=== PATIENT | male | born 1985 | race American Indian/Alaskan Native ===

== ENCOUNTER 2022-02-01 20:42 | Emergency (ER) | payer SELFPAY ==
[2022-02-01 22:40] VITALS: BP 128/85
--- NOTE | 2022-02-01 23:40 | XRay Report ---
LEFT HAND 3 VIEW(S) INDICATION / CLINICAL INFORMATION: 5TH FINGER OPEN FRACTURE COMPARISON: None available. FINDINGS: BONES / JOINT(S): Dorsolateral dislocation of the small finger PIP demonstrated small fracture along the volar plate present. SOFT TISSUES: No significant abnormality. ADDITIONAL FINDINGS: None. IMPRESSION: 1. Dorsolateral dislocation of the left small finger PIP with fracture along the volar plate of the m iddle phalanx. Signer Name: Camilo Garrett II, MD Signed: 02/01/2022 11:36 PM Workstation Name: [id number]
[2022-02-02] MEDS ORDERED: ceFAZolin 1 GM VIAL IM ONE (02:55)
[2022-02-02] MEDS ORDERED: oxyCODONE /ACETAMINOPHEN 5-325MG TAB PO ONE (02:55)
--- NOTE | 2022-02-02 03:31 | XRay Report ---
XR finger(s) 2+V LT INDICATION / CLINICAL INFORMATION: post reduction film COMPARISON: None available. FINDINGS: The left small finger PIP remains dorsally dislocated. Deformity along the inferior corner remains pr esent. IMPRESSION: 1. Dorsal dislocation left small finger PIP. Signer Name: Camilo Garrett II, MD Signed: 02/02/2022 3:27 AM Workstation Name: [id number]
--- NOTE | 2022-02-02 04:54 | XRay Report ---
XR finger(s) 1V LT INDICATION / CLINICAL INFORMATION: post reductigon second COMPARISON: Left hand x-ray 02/02/2022 FINDINGS: Single lateral view left small finger demonstrates reduction of PIP with bony deformity involving the volar corner of the middle phalanx. Additional nondisplaced fracture dorsal corner is not excluded. IMPRESSION: 1. Successful reduction of PIP with fracture deformity involving the volar corner middle phalanx. Signer Name: Camilo Garrett II, MD Signed: 02/02/2022 4:49 AM Workstation Name: [id number]
--- NOTE | 2022-02-02 05:56 | Emergency Department Report ---
ED Upper Extremity Inj HPI - General Chief Complaint: Extremity Injury, Upper Stated Complaint: POSS BROKEN LEFT PINKY FINGER Time Seen by Provider: 02/02/22 02:30 Source: patient Mode of arrival: Ambulatory Limitations: No Limitations - History of Present Illness Initial Comments: 36-year-old male presents emerged department complaining of pain to the left finger which was sustained after he was trying to catch a football resulting in him jamming his finger and having a open fracture laceration. Complaint: Injury to:: left, finger -: Sudden Other Extremity Injury: Fingers: Left Other Injuries: none Handedness: left Worsens With: none Context: fall Associated Symptoms: denies other symptoms - Related Data Previous Rx's Medication Instructions Recorded Last Taken Type Acetaminophen/Codeine [Tylenol 1 tab PO Q6H PRN #20 tab 02/02/22 Unknown Rx /Codeine # 3 tab] cephALEXin [Keflex] 500 mg PO Q8HR #30 cap 02/02/22 Unknown Rx Allergies Allergy/AdvReac Type Severity Reaction Status Date / Time No Known Allergies Allergy Unverified 02/01/22 22:33 ED Review of Systems ROS: Stated complaint: POSS BROKEN LEFT PINKY FINGER Other details as noted in HPI Comment: All other systems reviewed and negative ED Past Medical Hx - Past Medical History Previous Medical History?: No - Surgical History Past Surgical History?: No - Social History Smoking Status: Current Every Day Smoker Substance Use Type: None - Medications Home Medications: Home Medications Medication Instructions Recorded Confirmed Last Taken Type Acetaminophen/Codeine [Tylenol 1 tab PO Q6H PRN #20 tab 02/02/22 Unknown Rx /Codeine # 3 tab] cephALEXin [Keflex] 500 mg PO Q8HR #30 cap 02/02/22 Unknown Rx ED Physical Exam - General Limitations: No Limitations General appearance: alert, in no apparent distress - Head Head exam: Present: atraumatic, normocephalic - Eye Eye exam: Present: normal appearance, PERRL, EOMI Pupils: Present: normal accommodation - ENT ENT exam: Present: normal exam, normal orophraynx, mucous membranes dry, mucous membranes moist - Neck Neck exam: Present: normal inspection - Respiratory Respiratory exam: Present: normal lung sounds bilaterally. Absent: respiratory distress - Cardiovascular Cardiovascular Exam: Present: regular rate, normal rhythm. Absent: systolic murmur, diastolic murmur, rubs, gallop - GI/Abdominal GI/Abdominal exam: Present: soft, normal bowel sounds - Rectal Rectal exam: Present: deferred - Extremities Exam Extremities exam: Present: normal inspection - Back Exam Back exam: Present: normal inspection - Neurological Exam Neurological exam: Present: alert, oriented X3 - Psychiatric Psychiatric exam: Present: normal affect, normal mood - Skin Skin exam: Present: warm, dry, intact, normal color. Absent: rash ED Course Vital Signs 02/01/22 02/01/22 22:39 22:41 Temperature 98.7 F Pulse Rate 66 Respiratory 16 16 Rate Blood Pressure 128/85 O2 Sat by Pulse 100 Oximetry - Laceration /Wound Repair Left Finger Wound Location: upper extremity Wound Length (cm): 1 Wound's Depth, Shape: linear Irrigated w/ Saline (ccs): 30 Betadine Prep?: Yes Anesthesia: 1% Lidocaine Wound Debrided: minimal Wound Repaired With: sutures Suture Size/Type: 3:0 Number of Sutures: 4 Layer Closure?: No ED Medical Decision Making - Radiology Data Radiology results: report reviewed Dorsal dislocation of the fifth digit which was successfully reduced - Medical Decision Making 36-year-old male talkative up [place] in a open pain dislocation which was reduced with light with lidocaine hematoma block and placed in a finger splint. This is laceration was repaired with sutures x4 with no complications. Is been advised on proper wound care. And was over stitches were placed so no return for removal. Critical care attestation.: If time is entered above; I have spent that time in minutes in the direct care of this critically ill patient, excluding procedure time. ED Disposition Clinical Impression: Dislocation of finger, interphalangeal joint, left, open Disposition: 01 HOME / SELF CARE / HOMELESS Is pt being admited?: No Does the pt Need Aspirin: No Condition: Stable Instructions: Sutured Wound Care, [id number] Prescriptions: cephALEXin [Keflex] 500 mg PO Q8HR #30 cap Acetaminophen/Codeine [Tylenol /Codeine # 3 tab] 1 tab PO Q6H PRN #20 tab PRN Reason: Pain , Severe (7-10) Referrals: DON TYLER MD [Primary Care Provider] - 3-5 Days
== END 2022-02-02 06:51 | disposition home or self-care (01) ==
LOC: ED 20:42
DX: S63.279A Dislocation of unspecified interphalangeal joint of unspecified finger, initial encounter (principal); F17.200 Nicotine dependence, unspecified, uncomplicated; W23.0XXA Caught, crushed, jammed, or pinched between moving objects, initial encounter; Y93.89 Activity, other specified; Y92.89 Other specified places as the place of occurrence of the external cause; Y99.8 Other external cause status
CPT/HCPCS: 12001; 73130; 73140; 96372; 99283; J0690